=== PATIENT | female | born 2000 | race Caucasian/White ===

== ENCOUNTER 2025-07-06 01:57 | Emergency (ER) | payer BC, OTHER ==
[2025-07-06] MEDS: Lidocaine 1% with EPINEPHrine 1:100,000 10 ML MDV INJECT ONE (02:40)
== END 2025-07-06 03:53 | disposition home or self-care (01) ==
LOC: MW.ED 01:57
DX: S61.412A Laceration without foreign body of left hand, initial encounter (principal); W26.8XXA Contact with other sharp object(s), not elsewhere classified, initial encounter; Y93.89 Activity, other specified
CPT/HCPCS: 12002; 99282; J2004

== ENCOUNTER 2025-07-13 08:03 | Emergency (ER) | payer OTHER | END 2025-07-13 08:20 | disposition left against medical advice (07) | LOC: MW.ED 08:03 | DX: S61.012D Laceration without foreign body of left thumb without damage to nail, subsequent encounter (principal); X58.XXXD Exposure to other specified factors, subsequent encounter | CPT/HCPCS: 99281 ==